=== PATIENT | male | born 1965 | race Caucasian/White ===

== ENCOUNTER 2018-01-20 15:54 | Emergency (ER) | payer SELFPAY ==
[~2018-01-20] VITALS: Ht 190.5 cm; Wt 62.5 kg
[~2018-01-20 15:54] MED LIST: ASPI81 CHEW; VENTAER INH
[2018-01-20 15:55] VITALS: BP 103/66; PULSE 92; RESP 22; TEMP 98.6; O2SAT 98
[2018-01-20 16:07] VITALS: BP 102/71; PULSE 95; RESP 24; O2SAT 98
[2018-01-20] MEDS ORDERED: SODIUM CHLOR 0.9% 1000 ML INJ 1,000 ML IV ONE ×2 (16:36)
[2018-01-20] MEDS ORDERED: SODIUM CHLOR 0.9% 1000 ML INJ 100 ML IV ONE (16:36)
--- NOTE | 2018-01-20 16:43 | PD ---
HPI Chief Complaint: Cold / Flu Symptoms Time Seen by Provider: 16:01 Travel History International Travel<30 days: No Contact w/Intl Traveler<30days: No Traveled to known affect area: No History of Present Illness HPI 52-year-old male with history of seizure disorder, migraines, alcohol dependence , presents emergency department for evaluation of body aches, fever, nausea, vomiting, chills 5 days. He has tried several [id number] remedies without any relief. He denies any cough or chest congestion. Denies hematemesis or hematochezia. He has not had any diarrhea. Denies any urinary symptoms. He has no other symptoms to report at this time. PFSH Past Medical History Arthritis: Yes (RIGHT SHOULDER PAIN) Autoimmune Disease: No Anxiety: Yes Depression: Yes Cancer: No Cardiovascular Problems: No Chemotherapy: No Cerebrovascular Accident: No Endocrine: No Gastrointestinal Disorders: No Genitourinary: No Headaches: Yes (occassionally) Immune Disorder: No Implanted Vascular Access Dvce: No Musculoskeletal: Yes (CHRONIC BILAT SHOULDER PAIN) Neurologic: Yes Psychiatric: Yes Reproductive: No Respiratory: No Migraines: No Radiation Therapy: No Seizures: Yes (6-8 years ago) Influenza Vaccination: No Past Surgical History Tonsillectomy: Yes Other Surgery: No Social History Alcohol Use: Yes (1-2 BEERS (5 DAYS A WEEK)) Tobacco Use: Yes (1 PPD) Substance Use: Yes (MARIJUANA) Allergies-Medications (Allergen,Severity, Reaction): Coded Allergies: No Known Allergies (Verified Allergy, Unknown, 01/20/18) Reported Meds & Prescriptions Reported Meds & Active Scripts Active Phenergan (Promethazine HCl) 25 Mg Tablet 25 Mg PO Q6H PRN Review of Systems Except as stated in HPI: all other systems reviewed are Neg Physical Exam Narrative GENERAL: Well-nourished male patient, no acute distress SKIN: Focused skin assessment warm/dry. HEAD: Atraumatic. Normocephalic. EYES: Pupils equal and round. No scleral icterus. No injection or drainage. ENT: No nasal bleeding or discharge. Mucous membranes pink and moist. NECK: Trachea midline. No JVD. CARDIOVASCULAR: Regular rate and rhythm. No murmur appreciated. RESPIRATORY: No accessory muscle use. Clear to auscultation. Breath sounds equal bilaterally. GASTROINTESTINAL: Abdomen soft, non-tender, nondistended. No guarding. No rebound tenderness. Hepatic and splenic margins not palpable. MUSCULOSKELETAL: No obvious deformities. No clubbing. No cyanosis. No edema. NEUROLOGICAL: Awake and alert. No obvious cranial nerve deficits. Motor grossly within normal limits. Normal speech. PSYCHIATRIC: Appropriate mood and affect; insight and judgment normal. Data Data Last Documented VS Vital Signs Date Time Temp Pulse Resp B/P (MAP) Pulse Ox O2 Delivery O2 Flow Rate FiO2 01/20/18 19:46 01/20/18 17:40 78 19 98 Nasal Cannula 2.00 01/20/18 16:54 99.6 Orders Orders Sepsis Workup Initiated (01/20/18 ) Complete Blood Count With Diff (01/20/18 16:36) Comprehensive Metabolic Panel (01/20/18 16:36) Prothrombin Time / Inr (Pt) (01/20/18 16:36) Act Partial Throm Time (Ptt) (01/20/18 16:36) Lactic Acid Sepsis Protocol (01/20/18 16:36) Lipase (01/20/18 16:36) Urinalysis - C+S If Indicated (01/20/18 16:36) Influenzae A/B Antigen (01/20/18 16:36) Blood Culture (01/20/18 16:36) Chest, Single Ap (01/20/18 16:36) Blood Glucose (01/20/18 16:36) Ecg Monitoring (01/20/18 16:36) Iv Access Insert/Monitor (01/20/18 16:36) Oximetry (01/20/18 16:36) Oxygen Administration (01/20/18 16:36) Sodium Chlor 0.9% 1000 Ml Inj (Ns 1000 M (01/20/18 16:36) Sodium Chlor 0.9% 1000 Ml Inj (Ns 1000 M (01/20/18 16:36) Sodium Chlor 0.9% 1000 Ml Inj (Ns 1000 M (01/20/18 16:36) Ondansetron Inj (Zofran Inj) (01/20/18 17:15) Ed Discharge Order (01/20/18 18:58) Labs Laboratory Tests Test 01/20/18 16:30 01/20/18 18:30 White Blood Count 5.4 TH/MM3 Red Blood Count 4.77 MIL/MM3 Hemoglobin 16.1 GM/DL Hematocrit 46.8 % Mean Corpuscular Volume 98.2 FL Mean Corpuscular Hemoglobin 33.7 PG Mean Corpuscular Hemoglobin Concent 34.3 % Red Cell Distribution Width 13.0 % Platelet Count 78 TH/MM3 Mean Platelet Volume 9.3 FL Neutrophils (%) (Auto) 78.1 % Lymphocytes (%) (Auto) 16.2 % Monocytes (%) (Auto) 5.2 % Eosinophils (%) (Auto) 0.1 % Basophils (%) (Auto) 0.4 % Neutrophils # (Auto) 4.2 TH/MM3 Lymphocytes # (Auto) 0.9 TH/MM3 Monocytes # (Auto) 0.3 TH/MM3 Eosinophils # (Auto) 0.0 TH/MM3 Basophils # (Auto) 0.0 TH/MM3 CBC Comment AUTO DIFF Differential Comment AUTO DIFF CONFIRMED Prothrombin Time 10.6 SEC Prothromb Time International Ratio 1.0 RATIO Activated Partial Thromboplast Time 32.9 SEC Blood Urea Nitrogen 15 MG/DL Creatinine 1.11 MG/DL Random Glucose 131 MG/DL Total Protein 7.2 GM/DL Albumin 3.8 GM/DL Calcium Level 8.6 MG/DL Alkaline Phosphatase 71 U/L Aspartate Amino Transf (AST/SGOT) 28 U/L Alanine Aminotransferase (ALT/SGPT) 27 U/L Total Bilirubin 0.4 MG/DL Sodium Level 134 MEQ/L Potassium Level 4.0 MEQ/L Chloride Level 101 MEQ/L Carbon Dioxide Level 22.4 MEQ/L Anion Gap 11 MEQ/L Estimat Glomerular Filtration Rate 69 ML/MIN Lactic Acid Level 1.3 mmol/L Lipase 98 U/L Urine Color YELLOW Urine Turbidity CLEAR Urine pH 6.0 Urine Specific [place] 1.016 Urine Protein TRACE mg/dL Urine Glucose (UA) NEG mg/dL Urine Ketones 10 mg/dL Urine Occult Blood TRACE Urine Nitrite NEG Urine Bilirubin NEG Urine Urobilinogen LESS THAN 2.0 MG/DL Urine Leukocyte Esterase NEG Urine RBC 2 /hpf Urine WBC 1 /hpf Urine Mucus FEW /lpf Microscopic Urinalysis Comment CATH-CULT NOT IND MDM Medical Decision Making Medical Screen Exam Complete: Yes Emergency Medical Condition: Yes Medical Record Reviewed: Yes Differential Diagnosis Influenza versus gastroenteritis versus electrolyte abnormality versus gastritis versus pancreatitis versus cholecystitis Narrative Course 52-year-old male presents emergency department for evaluation of flulike symptoms 5 days. Patient appears overall well. Vital signs are stable. Laboratory Tests Test 5/6/18 16:30 01/20/18 18:30 White Blood Count 5.4 TH/MM3 Red Blood Count 4.77 MIL/MM3 Hemoglobin 16.1 GM/DL Hematocrit 46.8 % Mean Corpuscular Volume 98.2 FL Mean Corpuscular Hemoglobin 33.7 PG Mean Corpuscular Hemoglobin Concent 34.3 % Red Cell Distribution Width 13.0 % Platelet Count 78 TH/MM3 Mean Platelet Volume 9.3 FL Neutrophils (%) (Auto) 78.1 % Lymphocytes (%) (Auto) 16.2 % Monocytes (%) (Auto) 5.2 % Eosinophils (%) (Auto) 0.1 % Basophils (%) (Auto) 0.4 % Neutrophils # (Auto) 4.2 TH/MM3 Lymphocytes # (Auto) 0.9 TH/MM3 Monocytes # (Auto) 0.3 TH/MM3 Eosinophils # (Auto) 0.0 TH/MM3 Basophils # (Auto) 0.0 TH/MM3 CBC Comment AUTO DIFF Differential Comment AUTO DIFF CONFIRMED Prothrombin Time 10.6 SEC Prothromb Time International Ratio 1.0 RATIO Activated Partial Thromboplast Time 32.9 SEC Blood Urea Nitrogen 15 MG/DL Creatinine 1.11 MG/DL Random Glucose 131 MG/DL Total Protein 7.2 GM/DL Albumin 3.8 GM/DL Calcium Level 8.6 MG/DL Alkaline Phosphatase 71 U/L Aspartate Amino Transf (AST/SGOT) 28 U/L Alanine Aminotransferase (ALT/SGPT) 27 U/L Total Bilirubin 0.4 MG/DL Sodium Level 134 MEQ/L Potassium Level 4.0 MEQ/L Chloride Level 101 MEQ/L Carbon Dioxide Level 22.4 MEQ/L Anion Gap 11 MEQ/L Estimat Glomerular Filtration Rate 69 ML/MIN Lactic Acid Level 1.3 mmol/L Lipase 98 U/L Urine Color YELLOW Urine Turbidity CLEAR Urine pH 6.0 Urine Specific [place] 1.016 Urine Protein TRACE mg/dL Urine Glucose (UA) NEG mg/dL Urine Ketones 10 mg/dL Urine Occult Blood TRACE Urine Nitrite NEG Urine Bilirubin NEG Urine Urobilinogen LESS THAN 2.0 MG/DL Urine Leukocyte Esterase NEG Urine RBC 2 /hpf Urine WBC 1 /hpf Urine Mucus FEW /lpf Microscopic Urinalysis Comment CATH-CULT NOT IND This is likely a viral illness. Patient will be discharged home. He is counseled on care. He agrees to return immediately with acute worsening symptoms. Diagnosis Primary Impression: Flu-like symptoms Referrals: Primary Care Physician Patient Instructions: General Instructions, Viral Syndrome (ED) Departure Forms: Tests/Procedures, Work Release Enter return to work date: January 23, 2018 Additional Instructions: Rest Maintain adequate oral hydration Follow-up with a primary care provider Tylenol or ibuprofen as directed on the package as needed for fever and/or pain Return immediately with acute worsening of symptoms Med/Other Pt SpecificInfo: Prescription(s) given Scripts Promethazine (Phenergan) 25 Mg Tablet 25 MG PO Q6H Y for NAUSEA OR VOMITING, #15 TAB 0 Refills Prov: Rachael Doss 01/20/18 Disposition: 01 DISCHARGE HOME Condition: Stable Rachael Doss January 20, 2018 16:43
[2018-01-20 16:51] LABS: AUTOMATED NEUTROPHIL # 4.2 TH/MM3 (1.8-7.7); BASOPHIL % 0.4 % (0.0-2.0); EOSINOPHIL % 0.1 % (0.0-4.0); HEMATOCRIT 46.8 % (39.0-51.0); HEMOGLOBIN 16.1 GM/DL (13.0-17.0); LYMPH % 16.2 % (9.0-44.0); LYMPHOCYTE # 0.9 TH/MM3 (1.0-4.8); MEAN CELL VOLUME 98.2 FL (80.0-100.0); MEAN CORPUSCULAR HEMOGLOBIN 33.7 PG (27.0-34.0); MEAN CORPUSCULAR HGB CONC 34.3 % (32.0-36.0); MEAN PLATELET VOLUME 9.3 FL (7.0-11.0); MONO % 5.2 % (0.0-8.0); MONOCYTE # 0.3 TH/MM3 (0-0.9); NEUT % 78.1 % (16.0-70.0); PLATELET COUNT 78 TH/MM3 (150-450); RED BLOOD COUNT 4.77 MIL/MM3 (4.50-5.90); WHITE BLOOD COUNT 5.4 TH/MM3 (4.0-11.0)
[2018-01-20 16:54] VITALS: PULSE 94; RESP 22; TEMP 99.6; O2SAT 100
[2018-01-20 17:03] VITALS: BP 121/72; PULSE 80; RESP 18; O2SAT 99
[2018-01-20 17:04] LABS: ALBUMIN 3.8 GM/DL (3.4-5.0); ALT (GPT) 27 U/L (12-78); AST (GOT) 28 U/L (15-37); BICARBONATE 22.4 MEQ/L (21.0-32.0); BLOOD UREA NITROGEN 15 MG/DL (7-18); CALCIUM 8.6 MG/DL (8.5-10.1); CHLORIDE 101 MEQ/L (98-107); CREATININE 1.11 MG/DL (0.60-1.30); GLOMERULAR FILTRATION RATE 69 ML/MIN (>89); GLUCOSE,RANDOM 131 MG/DL (74-106); SODIUM (NA) 134 MEQ/L (136-145)
[2018-01-20 17:05] LABS: PROTHROMBIN TIME - PATIENT 10.6 SEC (9.8-11.6)
[2018-01-20 17:07] LABS: ALKALINE PHOSPHATASE 71 U/L (45-117); TOTAL BILIRUBIN ADULT 0.4 MG/DL (0.2-1.0); TOTAL PROTEIN 7.2 GM/DL (6.4-8.2)
[2018-01-20] MEDS ORDERED: ONDANSETRON HCL 4 MG/2 ML VIAL IV PUSH ONE (17:15)
--- NOTE | 2018-01-20 17:29 | RADRPT ---
EXAM DATE/TIME: 01/20/2018 16:53 [facility] COMPARISON: No previous studies available for comparison. INDICATIONS : Cough and fever MEDICAL HISTORY : History of scar tissue of upper lung. SURGICAL HISTORY : None. ENCOUNTER: Initial ACUITY: 1 day PAIN SCORE: 0/10 LOCATION: chest FINDINGS: Emphysematous changes are noted bilaterally. No acute focal infiltrate or pulmonary vascular congesti on is noted. The heart is normal. Scoliosis of the thoracic spine is noted. CONCLUSION: 1. Emphysematous changes bilaterally. 2. No focal infiltrate or pulmonary vascular congestion. 3. Scoliosis of the thoracic spine. Erik Mcnally MD on January 20, 2018 at 17:26 Board Certified Radiologist. This report was verified electronically.
[2018-01-20 17:40] VITALS: BP 117/67; PULSE 78; RESP 19; O2SAT 98
[2018-01-20 18:55] LABS: BILIRUBIN, URINE NEG (NEG); BLOOD, URINE TRACE (NEG); GLUCOSE,URINE NEG (NEG); KETONE, URINE 10 mg/dL (NEG); MUCUS URINE FEW /lpf (OCC); NITRITE,URINE NEG (NEG); URINE COLOR YELLOW (YELLW/STRAW); URINE LEUKOCYTE ESTERASE NEG (NEG)
[2018-01-20] MEDS ORDERED: PROM25TA10 PO (19:00)
== END 2018-01-20 19:47 | disposition home or self-care (01) ==
LOC: NEPC 15:54
DX: B34.9 Viral infection, unspecified (principal); F12.90 Cannabis use, unspecified, uncomplicated; F17.200 Nicotine dependence, unspecified, uncomplicated
CPT/HCPCS: 71045; 80053; 81001; 83605; 83690; 85025; 85610; 85730; 87040; 87804; 96361; 96374; 99284; J2405; J7030